=== PATIENT | male | born 1945 | race Caucasian/White ===

== ENCOUNTER 2021-06-29 14:56 | Inpatient (IN) | payer MEDICARE, MEDICAID ==
[~2021-06-29] VITALS: Ht 167.6 cm; Wt 81.6 kg
[2021-06-29 17:30] LABS: HEMOGLOBIN 12.6 gm/dl (14.0-17.5); RED BLOOD COUNT 4.43 M/UL (4.20-5.50); WHITE BLOOD COUNT 11.2 K/UL (4.5-11.0)
[2021-06-29 17:51] LABS: BUN/CREATININE RATIO 26 (0-10)
[2021-06-30 01:51] LABS: HEMOGLOBIN 9.7 gm/dl (14.0-17.5); RED BLOOD COUNT 3.48 M/UL (4.20-5.50); WHITE BLOOD COUNT 7.9 K/UL (4.5-11.0)
[2021-06-30] MEDS ORDERED: LORATADINE10 MG PO (10:39)
[2021-06-30] MEDS ORDERED: TRICOR 145 MG145 MG PO (10:40)
[2021-06-30] MEDS ORDERED: ZOCOR40 MG PO (10:40)
[2021-06-30] MEDS ORDERED: LISINOPRIL20 MG PO (10:40)
[2021-06-30] MEDS ORDERED: ASPIRIN EC81 MG PO (10:40)
[2021-06-30] MEDS ORDERED: VITAMIN D 40400 UNIT PO (10:41)
[2021-07-01 04:24] LABS: HEMOGLOBIN 10.1 gm/dl (14.0-17.5); RED BLOOD COUNT 3.58 M/UL (4.20-5.50); WHITE BLOOD COUNT 7.4 K/UL (4.5-11.0)
[2021-07-01 05:01] LABS: BUN/CREATININE RATIO 28 (0-10)
--- NOTE | 2021-07-01 13:17 | NUR ---
Patient returned from surgery, abdominal incisions look well. no drainage or s/s of infection noted at this time. Patient is alert. vital signs are stable, will continue to monitor.
[2021-07-02 06:42] LABS: HEMOGLOBIN 9.6 gm/dl (14.0-17.5); RED BLOOD COUNT 3.45 M/UL (4.20-5.50); WHITE BLOOD COUNT 7.4 K/UL (4.5-11.0)
[2021-07-02 07:13] LABS: BUN/CREATININE RATIO 24 (0-10)
[2021-07-02] MEDS ORDERED: ZOFRAN 4 MG TAB4 MG PO (12:40)
== END 2021-07-02 15:05 | disposition home or self-care (01) | DRG 417 ==
LOC: ER1 14:56 → M/S 19:04 → CDU 19:04 → M/S 06-30 18:40
PROVIDERS: Internal Medicine; Physician Assistant; Surgery; ADMIT Internal Medicine
PROC: 8E0ZXY6 Isolation (ICD-10-PCS; 2021-06-29)
PROC: 0FT44ZZ Resection of Gallbladder, Percutaneous Endoscopic Approach (ICD-10-PCS; principal; 2021-07-01 12:00)
DX: K85.10 Biliary acute pancreatitis without necrosis or infection (principal); U07.1 COVID-19; N17.9 Acute kidney failure, unspecified; E87.2 Acidosis; E78.00 Pure hypercholesterolemia, unspecified; K80.50 Calculus of bile duct without cholangitis or cholecystitis without obstruction; E78.5 Hyperlipidemia, unspecified; E86.0 Dehydration; I10 Essential (primary) hypertension; R47.81 Slurred speech; Z90.49 Acquired absence of other specified parts of digestive tract; Z98.890 Other specified postprocedural states; Z80.3 Family history of malignant neoplasm of breast; Z87.891 Personal history of nicotine dependence; Z85.3 Personal history of malignant neoplasm of breast; Z79.899 Other long term (current) drug therapy; Z79.82 Long term (current) use of aspirin
CPT/HCPCS: 70450; 71045; 74181; 76705; 80048; 80053; 81001; 82550; 82553; 83605; 83690; 83735; 83874; 84478; 84484; 85025; 85610; 93005; 94760; 96374; 96375; 99285; C9113; G0378; J0690; J1170; J1650; J2270; J2405; J2704; J3010; J7030; J7120; Q9967; U0002

== ENCOUNTER → 2021-07-20 | Outpatient (CLI) | payer MEDICARE, BC ==
[~2021-07-20] MED LIST: ASPIRIN EC81 MG PO; LISINOPRIL20 MG PO; LORATADINE10 MG PO; TRICOR 145 MG145 MG PO; VITAMIN D 40400 UNIT PO; ZOCOR40 MG PO; ZOFRAN 4 MG TAB4 MG PO
[2021-07-20 12:40] LABS: HEMOGLOBIN 10.7 gm/dl (14.0-17.5); RED BLOOD COUNT 3.83 M/UL (4.20-5.50); WHITE BLOOD COUNT 8.2 K/UL (4.5-11.0)
== END ==
LOC: LAB 11:40
PROVIDERS: Family Medicine
DX: D64.9 Anemia, unspecified (principal)
CPT/HCPCS: 36415; 82728; 83540; 83550; 85025

== ENCOUNTER → 2021-08-13 | Outpatient (CLI) | payer MEDICARE, BC ==
[2021-08-13 11:46] LABS: HEMOGLOBIN 8.6 gm/dl (14.0-17.5); RED BLOOD COUNT 3.21 M/UL (4.20-5.50); WHITE BLOOD COUNT 8.1 K/UL (4.5-11.0)
== END ==
LOC: LAB 11:06
PROVIDERS: Nurse Practitioner Family
DX: D64.9 Anemia, unspecified (principal)
CPT/HCPCS: 36415; 85025

== ENCOUNTER → 2021-08-25 | Outpatient (CLI) | payer MEDICARE, BC ==
[2021-08-25 09:04] LABS: HEMOGLOBIN 9.4 gm/dl (14.0-17.5); RED BLOOD COUNT 3.62 M/UL (4.20-5.50); WHITE BLOOD COUNT 9.1 K/UL (4.5-11.0)
== END ==
LOC: LAB 08:39
PROVIDERS: Internal Medicine
DX: D64.9 Anemia, unspecified (principal); Z87.891 Personal history of nicotine dependence
CPT/HCPCS: 36415; 85027

== ENCOUNTER → 2021-09-02 | Outpatient (CLI) | payer MEDICARE, BC ==
[2021-09-02 08:35] LABS: HEMOGLOBIN 8.7 gm/dl (14.0-17.5); RED BLOOD COUNT 3.36 M/UL (4.20-5.50); WHITE BLOOD COUNT 9.3 K/UL (4.5-11.0)
== END ==
LOC: LAB 08:09
PROVIDERS: Internal Medicine
DX: D64.9 Anemia, unspecified (principal); Z87.891 Personal history of nicotine dependence
CPT/HCPCS: 36415; 85027

== ENCOUNTER → 2021-10-14 | Outpatient (CLI) | payer MEDICARE, BC ==
[~2021-10-14] MED LIST changes: +FERROUS SULFAT325 M2 PO
== END ==
LOC: KOH-I 10:49
DX: Z87.891 Personal history of nicotine dependence (principal); R91.1 Solitary pulmonary nodule; K85.90 Acute pancreatitis without necrosis or infection, unspecified
CPT/HCPCS: 71271

== ENCOUNTER → 2021-11-12 | Outpatient (CLI) | payer MEDICARE, BC | LOC: LAB 10:52 | DX: K85.90 Acute pancreatitis without necrosis or infection, unspecified (principal); E78.1 Pure hyperglyceridemia; E53.8 Deficiency of other specified B group vitamins; E55.9 Vitamin D deficiency, unspecified; N40.0 Benign prostatic hyperplasia without lower urinary tract symptoms | CPT/HCPCS: 36415; 80061; 82150; 82607; 83690; 84153 ==